=== PATIENT | male | born 2000 | race Two or more races ===

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

== ENCOUNTER 2023-10-14 09:13 | Emergency (ER) | payer BC, OTHER, SELFPAY ==
--- NOTE | ~2023-10-14 | XR_ITS ---
EXAMINATION: XR KNEE, RIGHT CLINICAL INFORMATION: Right knee pain following a fall. COMPARISON: Report from right knee radiographs dated 07/05/2015. TECHNIQUE: Four views of the right knee. FINDINGS: No acute fracture or dislocation. No joint space narrowing or marginal osteophytes. No osseous erosion. No abnormal soft tissue calcification. No significant joint effusion. XR/XR knee RT 4V IMPRESSION: No acute osseous abnormality.
[2023-10-14 09:40] VITALS: BP 128/69; PULSE 64; RESP 18; TEMP 36.6; O2SAT 98; BMI 28.7
--- NOTE | 2023-10-14 10:21 | ED_ITS ---
HPI - General Adult General Chief complaint: Extremity Injury, Lower Stated complaint: R Leg Pain S/P Injury 10/13/23 Time Seen by Provider: 10/14/23 10:21 Source: patient Mode of arrival: ambulatory Limitations: no limitations History of Present Illness HPI narrative: Patient is a 23 year old assigned male at with a history of right knee surgery presenting to the emergency department today with right knee pain. Patient states that 10 years ago he needed surgery on his right knee. Patient states that just yesterday he was playing basketball and he fell onto his right knee. Patient states that he is only having pain with walking up and down stairs. Patient denies any head strike, loss of consciousness, dizziness, lightheadedness, abdominal pain, nausea, vomiting, fever, chills, blurry vision, double vision, loss of vision, chest pain, difficulty breathing, shortness of breath, back pain, night sweats, pain with urination, increased urinary frequency, increased urinary urgency, blood in his urine or stool, syncope or a near syncopal episode, bowel incontinence, bladder incontinence, bowel retention, bladder retention, or any other complaints at this time. Onset (ago): day(s) (1) Location: right and lower extremity Radiation: non-radiation Severity: mild Severity scale (1-10): 3 Quality: aching and dull Pain Consistency: intermittent Relieving factors: none Exacerbating factors: movement Associated symptoms: denies other symptoms Treatments prior to arrival: none Related Data Allergies Allergy/AdvReac Type Severity Reaction Status Date / Time No Known Allergies Allergy Verified 10/14/23 09:40 Review of Systems Constitutional: Constitutional: Reports no additional constitutional complaints, Denies chills, Denies fever(s) and Denies night sweats Eyes: Eyes: Reports no additional eye complaints, Denies blurry vision, Denies change in vision, Denies diplopia, Denies eye discharge, Denies loss of vision and Denies eye pain ENT: Denies dizziness Cardiovascular: Cardiovascular: Reports no additional cardiovascular compl aints, Denies chest pain, Denies lightheadedness, Denies Loss of Consciousness and Denies dyspnea Respiratory: Respiratory: Reports no additional respiratory complaints and Denies dyspnea Gastrointestinal: Gastrointestinal: Reports no additional gastrointestinal complaints, Denies abdominal pain, Denies melena, Denies hematochezia, Denies change in bowel habits and Denies change in stool character Genitourinary: Genitourinary: Reports no additional male genitourinary complaints, Denies hematuria, Denies oliguria, Denies difficulty urinating, Denies dysuria, Denies urinary frequency, Denies urinary hesitancy, Denies urinary incontinence and Denies urinary urgency Musculoskeletal: Musculoskeletal: Reports no additional musculoskeletal complaints, Denies numbness and Denies tingling Comments: right knee pain Neurologic: Denies dizziness, Denies loss of vision, Denies numbness and Denies tingling Psychiatric: Psychiatric: Reports no additional psychiatric complaints Endocrine: Endocrine: Reports no additional endocrine complaints Hematologic/Lymphatic: Hematologic/Lymphatic: Reports no additional hematologic/lymphatic complaints Allergic/Immunologic: Allergic/Immunologic: Reports no additional allergic/immunologic complaints PMFSH Past Medical History Attestation statement: The following information was validated with the patient. Source: old records reviewed and nursing notes reviewed Physical Exam ED Vital Signs: Vital Signs - 24 hr 10/14/23 09:40 Temperature 98 F Pulse Rate 64 Respiratory Rate 18 Blood Pressure 128/69 Pulse Oximetry 98 Oxygen Delivery Method Room Air BMI result Body Mass Index 28.7 Const General: cooperative, no acute distress, alert and awake Nutritional Appearance: well nourished Orientation/consciousness: patient oriented x3 Limitations: no limitations HENMT Head: Yes normal to inspection and Yes atraumatic Ears: hearing grossly normal bilaterally and external ears normal General nose exam: Normal external nose present, no nasal discharge noted and no epistaxis Face and sinus: Yes normal facial exam, No abrasion and No laceration Mouth: Normal oral and palatal mucosa present, no drooling and no muffled voice Eyes General: appearance normal, both eyes and all related structures Periorbital: periorbital findings normal Eyelids: Yes eyelids normal Conjunctivae: conjunctivae normal Pupils: Equal, round and reactive pupils present EOM: EOMs intact bilaterally Neck Neck: Yes normal visual inspection, Yes full ROM and Yes no lymphadenopathy Chest Chest palpation & inspection: normal inspection of the chest Resp Effort & Inspection: normal respiratory effort and able to speak in complete sentences GI Inspection: Yes normal to inspection Neuro General: patient oriented x3 and moves all extremities Cranial nerves: Yes Equal, round and reactive pupils present Cognition (Neuro): normal cognition Motor exam (neuro): 5/5 motor strength present throughout Sensory Exam: Normal double simultaneous stimulation for sensation Coordination: [id number] test normal Extrem General: Yes normal to inspection, Yes full ROM and Yes capillary refill normal Psych Appearance: grossly normal Mental Status: mental status grossly normal Affect: normal affect Attitude: cooperative Thought process: Normal thought process present Thought content: Normal thought content present Insight: Good insight present (Psych) Medical Decision Making Medical Decision Making MDM Narrative: Patient is a 23 year old assigned male at with a history of previous right knee surgery presenting to the emergency department today with right knee pain. Patient's physical exam was unremarkable. Patient's right knee x-ray showed no acute process. I explained my physical exam findings as well as all test results to the patient. I answered all questions asked by the patient. I stressed the importance of the patient taking his medication as prescribed. I stressed the importance of the patient following up with his primary care provider and an or thopedic provider. I stressed the importance of the patient returning to the emergency department immediately if his symptoms were to worsen or if he were to develop any dizziness, shortness of breath, difficulty breathing, chest pain, blurry vision, loss of vision, nausea, vomiting, abdominal pain, fever, chills, back pain, or any other complaints. Patient verbalized agreement and understanding with this treatment plan and discharge. Differential Diagnosis Differential Diagnoses: The differential diagnosis associated with the presen tation includes Right knee pain Right knee sprain Internal right knee injury Admission/Observation Consideration of admission/observation: Escalation of care including admission/observation considered Patient would have been admitted to the hospital had his work up had any findings where hospital admission was appropriate and his clinical presentation warranted hospital admission. Independent Interpretation I performed an independent interpretation of an: Plain X-Ray Interpretation: My interpretation is in agreement with the radiologist's impression of this imaging study. EXAMINATION: XR KNEE, RIGHT CLINICAL INFORMATION: Right knee pain following a fall. COMPARISON: Report from right knee radiographs dated 07/05/2015. TECHNIQUE: Four views of the right knee. FINDINGS: No acute fracture or dislocation. No joint space narrowing or marginal osteophytes. No osseous erosion. No abnormal soft tissue calcification. No significant joint effusion. XR/XR knee RT 4V IMPRESSION: No acute osseous abnormality. Dictated By: Sulaiman Wise MD Signed By: Electronically signed by Sulaiman Wise MD 10/14/23 1126 Radiology Impression Discussion of test interpretation with radiology: I have reviewed the radiologist's reading. Discharge Plan Discharge Clinical Impression: Acute knee pain Patient Disposition: Home, Self-Care Instructions: Knee Pain (ED) Additional Instructions: Follow up with your primary care provider and an orthopedic provider. Return to the emergency department immediately if your symptoms worsen or if you develop any dizziness, shortness of breath, difficulty breathing, chest pain, blurry vision, loss of vision, nausea, vomiting, abdominal pain, fever, chills, back pain, or any other complaints. Referrals: [facility] [Provider Group] (Call to establish and follow up with a primary care provider. If you already have a primary care provider, please follow up with them.) [facility] [place] [Provider Group] (Call to establish and follow up with a primary care provider. If you already have a primary care provider, please follow up with them.) [facility],[place] [Provider Group] (Call to establish and follow up with a primary care provider. If you already have a primary care provider, please follow up with them.) [facility] [Provider Group] (Call to establish and follow up with an orthopedic provider.) Stand Alone Forms: Work/School Release Interventions: ED Discharge Assessment Last Done: 10/14/23 12:22 Discharge Date/Time: 10/14/23 12:23 Print Language: Swiss
== END 2023-10-14 12:23 | disposition home or self-care (01) ==
PROVIDERS: Emergency Provider Emergency Medicine Emergency Medical Services
DX: M25.561 Pain in right knee (principal)
CPT/HCPCS: 73564; 99282; 99283

== ENCOUNTER 2023-11-12 07:46 | Outpatient (REF) | payer BC, OTHER, SELFPAY ==
--- NOTE | ~2023-11-12 | XR_ITS ---
EXAMINATION: XR knee standing BI, XR knee RT 2V CLINICAL INFORMATION: Reason for Exam M25.569 - Pain in unspecified knee COMPARISON: 10/14/2023 TECHNIQUE: Two views of the right knee FINDINGS: * No acute fracture or dislocation. * Joint spaces are maintained without significant degenerative change. * No soft tissue abnormality. XR/XR knee standing BI IMPRESSION: No acute fracture or dislocation.
--- NOTE | ~2023-11-12 | XR_ITS ---
EXAMINATION: XR knee standing BI, XR knee RT 2V CLINICAL INFORMATION: Reason for Exam M25.569 - Pain in unspecified knee COMPARISON: 10/14/2023 TECHNIQUE: Two views of the right knee FINDINGS: * No acute fracture or dislocation. * Joint spaces are maintained without significant degenerative change. * No soft tissue abnormality. XR/XR knee RT 2V IMPRESSION: No acute fracture or dislocation.
== END 2023-11-12 07:47 | disposition home or self-care (01) ==
LOC: HO.HOSX 07:46
PROVIDERS: Visit Provider Orthopaedic Surgery
DX: M23.91 Unspecified internal derangement of right knee (principal); M25.561 Pain in right knee
CPT/HCPCS: 73560; 73565

== ENCOUNTER 2023-11-12 08:55 | Outpatient (AMB) | payer BC, MEDICAID, SELFPAY ==
--- NOTE | 2023-11-12 08:59 | MHC.OFFVIS ---
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 Hx of right ACL surgery after basketball injury, surgery completed by Dr. Brian mcneill 9 years ago. He reports he was playing basketball and fell getting a rebound and felt a snap. 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 He fell while playing basketball and landed on his knee. He was seen in the ED on 10/14/23 and referred here. He complains of pain primarily with using stairs. He says when he fell he felt a painful snap inside his knee which concerned him. He has a hx of right knee ACL surgery in ~9322-1343, and he says he was doing well until this injury. Was playing soccer in [facility]. [facility] Surgical History (Updated 11/12/23 @ 09:11 by Olamide Muhammad RN) History of repair of anterior cruciate ligament of right knee Review of Systems Const All systems reviewed & are unremarkable except as noted in HPI and below Physical Exam Vital Signs: BMI result Body Mass Index 28.7 Const General: no acute distress, alert and awake Orientation/consciousness: patient oriented x3 HEENT Head: Yes normocephalic and Yes atraumatic Eyes EOM: EOMs intact bilaterally Resp Effort & Inspection: normal respiratory effort and able to speak in complete sentences Cardio Jugular venous distension: no JVD Skin General skin exam: turgor normal Rashes: no rashes Neuro General: patient oriented x3 Extrem Other: Right knee full ROM 1+ laxity with end point compared to left Psych Appearance: grossly normal Affect: normal affect Attitude: cooperative Assessment & Plan Assessment & Plan (1) Internal derangement of right knee: Code(s): M23.91 - Unspecified internal derangement of right knee Plan: History of ACL injury with continued laxity MRI to assess internal derangement Plan Prepared for Tiburcio Torres MD by Sanjiv Cabrera, biomedical engineering internship, on 11/12/23 at 9:07 AM, EST. Orders: Orders XR knee standing BI Today M25.569 - Pain in unspecified knee XR knee RT 2V Today M25.569 - Pain in unspecified knee MR knee RT wo con Today M23.91 - Unspecified internal derangement of right knee Coding Level of Care Code Est Pt Level 4 (57191) Diagnoses Internal derangement of right knee M23.91
[2023-11-12 09:06] VITALS: BMI 28.7
== END 2023-11-12 09:35 | disposition home or self-care (01) ==
PROVIDERS: Visit Provider Orthopaedic Surgery
DX: M23.91 Unspecified internal derangement of right knee (principal)
CPT/HCPCS: 99213

== ENCOUNTER 2023-12-14 10:52 | Outpatient (REF) | payer BC, OTHER, SELFPAY ==
--- NOTE | ~2023-12-14 | MR_ITS ---
EXAMINATION: MR KNEE WITHOUT CONTRAST, RIGHT CLINICAL INFORMATION: Internal derangement of the knee. Popped while jumping. Pain since. Findings basketball. Patient reports MCL tear 2013. COMPARISON: X-rays of the left knee October 2023 TECHNIQUE: MRI of the knee without contrast was performed using routine sequences on a high-field scanner. FINDINGS: MENISCI: Medial Meniscus: Intact Lateral Meniscus: There is some subtle oblique increased signal along the periphery of the posterior horn possibly extending to the articular surface. Findings suspicious but not definitive for tear. LIGAMENTS: Cruciate: Intact minimal cystic change within the tibial spine likely enthesopathic. Previously noted spine fracture on the prior MRI 2010 no longer identified. Collateral: Intact EXTENSOR MECHANISM: Intact ARTICULAR CARTILAGE/BONE: Patellofemoral Compartment: Normal Medial Compartment: Normal Lateral Compartment: There is a nondepressed nondisplaced osteochondral fracture/tibial plateau fracture of the lateral aspect of the tibial plateau. Fracture area extends up to 16 mm transverse 3 cm AP and extends up to 8 mm deep to the articular surface. Fracture extends to the articular cartilage there is surrounding marrow edema. The marrow edema also extends medially into the tibial spine which may reflect extension of the fracture to this area of the bone. Articular cartilage otherwise intact. Additional findings: There is endosteal lesion along the distal lateral posterior metaphysis of the femur at the appearance of a small nonossifying fibroma. This measures 10 x 8 x 17 mm period JOINT FLUID AND BURSAE: Normal MR/MR knee RT wo con IMPRESSION: 1. Nondepressed nondisplaced osteochondral fracture/tibial plateau fracture of the lateral aspect of the lateral tibial plateau. 2. Subtle findings in the posterior horn of the lateral meniscus suspicious but not definitive for tear. 3. 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
== END 2023-12-14 10:53 | disposition home or self-care (01) ==
LOC: HO.MRI 10:52
PROVIDERS: Visit Provider Orthopaedic Surgery
DX: M23.91 Unspecified internal derangement of right knee (principal)
CPT/HCPCS: 73721

== ENCOUNTER 2023-12-21 12:41 | Outpatient (AMB) | payer BC, MEDICAID, SELFPAY ==
--- NOTE | 2023-12-21 12:47 | A.OFFVIS_ITS ---
Intake Intake Visit Reasons: MRI follow up Intake Note: Pt presents to the office today for an MRI follow up. Pt states he no longer has any pain like before. Allergies No Known Allergies Allergy (Verified 12/21/23 12:47) HPI MRI follow up HPI Details Jesse is a 23 year old man who returns for an MRI review of his right knee pain, S/P fall, DOI: 10/13/23. He fell while playing basketball in [place] and landed on his knee. He says he is doing well and his pain has improved compared to prior. He has a hx of right knee ACL surgery in ~9291-5706, and he says he was doing well until this injury. [facility] Surgical History History of repair of anterior cruciate ligament of right knee Review of Systems Const All systems reviewed & are unremarkable except as noted in HPI and below Physical Exam Const General: no acute distress, alert and awake Orientation/consciousness: patient oriented x3 HEENT Head: Yes normocephalic and Yes atraumatic Eyes EOM: EOMs intact bilaterally Resp Effort & Inspection: normal respiratory effort and able to speak in complete sentences Cardio Jugular venous distension: no JVD Skin General skin exam: turgor normal Rashes: no rashes Neuro General: patient oriented x3 Extrem Other: nl knee exam Psych Appearance: grossly normal Affect: normal affect Attitude: cooperative Results Reviewed Results Reviewed: I personally reviewed the MR images. Nondepressed nondisplaced osteochondral fracture/tibial plateau fracture of the lateral aspect of the lateral tibial plateau. 2. Subtle findings in the posterior horn of the lateral meniscus suspicious but not definitive for tear. 3. 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 Assessment & Plan Assessment & Plan (1) Tibial plateau fracture: Code(s): S82.143A - Displaced bicondylar fracture of unspecified tibia, initial encounter for closed fracture Plan: NON displaced fracture of tibial plateau. Has been walking on it and feels well. Injury occurred ~ 2 mo ago. I recommend no running or impact activities fro one month. May return to work, however, without any additional restrictions. Plan Prepared for Tiburcio Torres MD by Sanjiv Cabrera, medical records supervisor, on 12/21/23 at 12:51 PM, EST. Coding Level of Care Code Est Pt Level 3 (99385) Diagnoses Tibial plateau fracture S82.143A
== END 2023-12-21 13:03 | disposition home or self-care (01) ==
PROVIDERS: Visit Provider Orthopaedic Surgery
DX: S82.141A Displaced bicondylar fracture of right tibia, initial encounter for closed fracture (principal)
CPT/HCPCS: 99213

== ENCOUNTER → 2023-12-21 12:41 | Outpatient (BNVA) | payer BC, MEDICAID, SELFPAY | PROVIDERS: Visit Provider Orthopaedic Surgery ==

== ENCOUNTER 2024-12-04 16:20 | Emergency (ER) | payer BC, SELFPAY ==
[2024-12-04 17:12] VITALS: BP 116/76; PULSE 68; RESP 18; O2SAT 98; BMI 28.7
--- NOTE | 2024-12-04 17:14 | ED_ITS ---
HPI - Abdominal Pain General Chief Complaint: Abdominal Pain Stated Complaint: sharp abdominal pain nausea Time Seen by Provider: 12/04/24 17:16 Source: patient Mode of arrival: ambulatory Limitations: no limitations History of Present Illness ED Provider: Elina Martinez NP HPI narrative: Patient is a 24 old male presents emergency department for evaluation. He states that he awoke from sleep at approximately 15:30 this evening when he awoke he had sudden onset upper abdominal pain diffusely across that felt severe. Admits to not having a similar pain like this in the past had ass ociated nausea but no vomiting. He asked a friend to bring him to the emergency department he states that while in the waiting room the pain resolved approximately 20 minutes ago. He is requesting to leave the emergency department at this time. He does not want any further evaluation as he feels back to baseline. Does admit that about 1 week ago he was having nausea and vomiting for 4 days, but has not been experiencing any issues with pain since then. Denies any history of liver disease, cholelithiasis, cholecystitis, GERD, gastritis, diabetes or excessive alcohol intake to suggest pancreatitis. Related Data Home Medications ?Medication ?Instructions ?Recorded ?Confirmed No Known Home Meds 11/12/23 11/12/23 Allergies Allergy/AdvReac Type Severity Reaction Status Date / Time No Known Allergies Allergy Verified 12/04/24 17:14 Review of Systems Review of Systems Yes all other systems are reviewed and are negative PMFSH Past Medical History Attestation statement: The following information was validated with the patient. Source: old records reviewed Surgical History History of repair of anterior cruciate ligament of right knee Physical Exam ED Vital Signs: Vital Signs - 24 hr 12/04/24 17:12 Pulse Rate 68 Respiratory Rate 18 Blood Pressure 116/76 Pulse Oximetry 98 Oxygen Delivery Method Room Air BMI result Body Mass Index 28.7 Appearance: Alert.?Oriented to person, place and time. No acute distress.?Normal affect.?? Neck: Normal inspection.? Neck supple.?? CVS: Heart sounds normal. Normal heart rate and rhythm.? Pulses normal.?? Respiratory: No respiratory distress.? Lung sounds clear to auscultation bilaterally?? Abdomen: Soft and non-tender. No rebound tenderness at McBurney's point. Negative psoas sign. Negative Rovsing sign. Negative Cia sign. No CVAT. Normoactive bowel sounds. No pulsatile mass.?? Skin: Skin warm and dry.? Normal skin color.? Extremities: No lower extremity edema.? Neuro: Moves all extremities spontaneously. Sensation intact bilaterally. Ambulates with normal steady gait. Medical Decision Making Medical Decision Making [facility] Narrative: Patient is a 24-year-old male with no reported past medical history who presents emergency department for evaluation of upper abdominal pain that has resolved 20 minutes prior to my evaluation as per HPI. Abdominal examination is benign, overall without signs of systemic toxicity found to be afebrile without tachycardia, no hypotension. Examination not consistent with acute abdomen, no peritoneal signs; no tenderness upon light palpation, no rebound tenderness, no guarding, no percussive tenderness. I discussed with patient potential causes of episodic/intermittent pain such as biliary colic from cholecystitis/cholelithiasis, gastritis, musculoskeletal pathology, lower clinical suspicion for pancreatitis given lack of risk factors. Reviewed obtaining serum labs to assess chemistries, hepatic/biliary function, renal function, CBC. However he states he feels well, nausea has resolved and I have any episodes of vomiting would like to go home at this time. Given he is entirely asymptomatic with a benign examination I feel this is reasonable. Does not have risk factors to suggest atypical pain for ACS. Discussed strict return precautions. All questions answered. Differential Diagnosis Differential Diagnoses: The differential diagnosis associated with the presentation includes (See narrative above) Admission/Observation Consideration of admission/observation: Escalation of care including admission/observation considered (See narrative above ) Lab Data [facility] Lab Attestation statement: I reviewed the patient's lab results. External Record Review External record reviewed: Outpatient record Tests considered The following testing was considered but not selected: See narrative above Prescription Management I considered prescription management with: Pain Medication (Acetaminophen as needed) Discharge Plan Discharge Clinical Impression: Abdominal pain Patient Disposition: Home, Self-Care Instructions: Abdominal Pain (ED) Additional Instructions: You are encouraged to remain in the emergency department to have blood work obtained. As discussed, the symptoms were describing could be related to troubles with your gallbladder, liver, stomach, pancreas. It is reassuring that your pain has resolved however as mentioned some conditions can have an intermittent course of symptoms. Elected to leave the emergency department without having any blood work obtained which is your right to do so. I recommend that you return with any new or worsening symptoms or concerns, consider outpatient follow-up with your primary care doctor if you continue to h ave intermittent pain of this nature Prescriptions: No Action No Known Home Meds Referrals: Physician,Unknown J [Primary Care Provider] - Interventions: ED Discharge Assessment Last Done: 12/04/24 17:19 Print Language: Georgian
[2024-12-04 17:17] VITALS: TEMP 36.2
[2024-12-04 17:19] VITALS: BP 117/76; PULSE 67; RESP 18; TEMP 36.2; O2SAT 98
--- OUTSIDE RECORDS SUMMARY | 2024-12-04 17:19 | XMS_ITS | Clinical Summary ---
Author Organization [facility] ity Address [address] [place] [address] Care Team Providers Care Supervisor Production Managing Name Role Phone Khang Bradshaw MD Primary Care Provider [phone] Surgical History Surgery Date Site/Laterality Comments OTHER SURGICAL HISTORY 08/01/11 PROCEDURE: ME OPTX TIBIAL SHFT FX W/PLATE/SCREWS W/WO CERCLAGE; COMMENT: open reduction and fixation of right tibial spine fracture Medical History Medical History Date Comments Fracture of radial shaft, wi th ulna, right, closed 02/22/13 DX:Fracture of radial shaft, with ulna, right, closed; COMMENT: closed reduction in ED Fracture of tibial spine, closed 07/27/11 DX:Fracture of tibial spine, closed; COMMENT: right tibial spine with tendons attached; or for reduction and fixation; followed annually 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 DX:S houlder instability, right; COMMENT: 02-11 Sscapular stabilizer and rotator cuff strengthening exercises Family History Medical History Relation Name Comments Heart attack Grandparent at 56 of M I Relation Name Status Comments Father Alive Grandparent Mother Alive Sister 1 Alive [place] Sister 2 Alive Social History Tobacco Use Types Packs/Day Years Used Date Smoking Tobacco: Never Smokeless Tobacco: Never Alcohol Use Standard Drinks/Week Comments Not Asked 0 (1 standard drink = 0.6 oz pur e alcohol) Sex and Gender Information Value Date Recorded Sex Assigned at Not on file Legal Sex Male 1:51 AM EST Gender Identity Not on file Sexual Orientation Not on file Obstetrics History Last Filed Vital Signs Vital Sign Reading Time Taken Comments Blood Pressure 118/80 08/05/2023 3:46 PM EDT Pulse 74 08/05/2023 3:46 PM EDT Temperature - - Respiratory Rate - - Oxygen Saturation - - Inhaled Oxygen Concentration - - Weight 93.3 kg (205 lb 12.8 oz) 08/05/2023 3:46 PM EDT Height 177.8 cm (5' 10 ) 08/05/2023 3:46 PM EDT Body Mass Index 29.53 08/05/2023 3:46 PM EDT Plan of Treatment Health Maintenance Due Date Last Done Comments DTaP,Tdap,and Td Vaccines (7 - Td or Tdap) 04/22/2021 04/22/2011, 01/20/2006, 05/02/2002, Additional history exists Depression Screening 09/28/2022 HIV Screening 09/28/2022 Hepatitis C Screening 09/28/2022 Social Influencers of Health Screening 09/28/2022 COVID-19 Vaccine ( season) 2024 Influenza Vaccine (#1) 2024 , 08/13/2017, 08/06/2016, Additional history exists IPV Vaccines Completed 01/27/2005, 05/2002, 2001, Additional history exists MMR Vaccines Completed 01/27/2005, 05/02/2002 Hepatitis B Vaccines Completed 07/08/2006, 06/02/2002, 05/02/2002 Pneumococcal Vaccine: Pediatrics (0 to 5 Years) and At-Risk Patients (6 to 64 Years) Aged Out 07/27/2008, 06/02/2002 No longer eligibl e based on patient's age to complete this topic Varicella Vaccines Completed 07/27/2008, 05/02/2002 Hepatitis A Vaccines Completed 02/13/2010, 11/17/19 09 HPV Vaccines Completed 11/18/2011, 01/2011, 02/13/2010 Meningococcal ACWY Vaccine Completed 02/19/2017, HIB Vaccines Aged Out No longer eligi ble based on patient's age to complete this topic RSV Immunization Patients Under 20 months Aged Out No longer eligible based on patient's age to complete this topic Care Teams Supervisor Production Managing Relationship Specialty Start Date End Date Khang Bradshaw MD PCP - General Internal Medicine 12/18/21
== END 2024-12-04 17:42 | disposition home or self-care (01) ==
PROVIDERS: Emergency Provider Emergency Medicine
DX: R10.10 Upper abdominal pain, unspecified (principal); R11.2 Nausea with vomiting, unspecified
CPT/HCPCS: 99282